=== PATIENT | male | born 1935 | race Caucasian/White ===

== ENCOUNTER 2021-02-15 12:10 | Day surgery (SDC) | payer MEDICARE ==
[2021-02-15] MEDS ORDERED: Depo-Medrol 40 MG/ML IM ONE (12:11)
[2021-02-15] MEDS ORDERED: Sodium Chloride 0.9(Preservative Free) 10 ML IJ ONE (12:11)
[2021-02-15] MEDS ORDERED: DIPRIVAN 200 MG/20 ML IV ONE (13:47)
[2021-02-15] MEDS ORDERED: Lactated Ringers 1,000 ML IV ONE (16:29)
--- NOTE | 2021-02-16 11:34 | XRAY ---
37 seconds fluoroscopy time in surgery for right L4-S1 transforaminal MILLICENT
== END 2021-02-15 14:15 | disposition home or self-care (01) ==
LOC: SDC-PAIN 12:10
PROVIDERS: ATTEND Psychiatry & Neurology Pain Medicine
DX: M54.16 Radiculopathy, lumbar region (principal); I10 Essential (primary) hypertension; E78.5 Hyperlipidemia, unspecified; Z79.899 Other long term (current) drug therapy
CPT/HCPCS: 64483; 64484; 72100; 77003; J1030; J2704; Q9966

== ENCOUNTER 2021-03-08 13:48 | Day surgery (SDC) | payer MEDICARE ==
[2021-03-08] MEDS ORDERED: Depo-Medrol 40 MG/ML IM ONE (13:49)
[2021-03-08] MEDS ORDERED: Sodium Chloride 0.9(Preservative Free) 10 ML IJ ONE (13:49)
[2021-03-08] MEDS ORDERED: DIPRIVAN 200 MG/20 ML IV ONE (16:06)
[2021-03-08] MEDS ORDERED: Lactated Ringers 1,000 ML IV ONE (17:33)
--- NOTE | 2021-03-09 08:11 | XRAY ---
30 seconds fluoroscopy time in surgery for right L4-S1 transforaminal MILLICENT.
== END 2021-03-08 16:27 | disposition home or self-care (01) ==
LOC: SDC-PAIN 13:48
PROVIDERS: ATTEND Psychiatry & Neurology Pain Medicine
DX: M54.16 Radiculopathy, lumbar region (principal); I10 Essential (primary) hypertension; E78.5 Hyperlipidemia, unspecified; Z79.899 Other long term (current) drug therapy
CPT/HCPCS: 64483; 64484; 72100; 77003; J1030; J2704; Q9966

== ENCOUNTER 2021-07-26 14:22 | Day surgery (SDC) | payer MEDICARE ==
[2021-07-26] MEDS ORDERED: Xylocaine 1% Vial 30 ML PF IJ ONE (14:23)
[2021-07-26] MEDS ORDERED: Depo-Medrol 40 MG/ML IM ONE (14:23)
[2021-07-26] MEDS ORDERED: BUPIVACAINE 0.5% VIAL IJ ONE (14:23)
--- NOTE | 2021-07-26 22:01 | XRAY ---
Indication: Left SI joint injection. Intraoperative fluoroscopy provided for 25 seconds. Single lateral digital spot image submitted for interpretation demonstrates posterior needle tip projecting mid sacrum. Correlate with intraoperative findings/report.
--- NOTE | 2021-07-27 09:03 | XRAY ---
25 seconds fluoroscopy time in surgery for injection of the left SI joint.
== END 2021-07-26 16:03 | disposition home or self-care (01) ==
LOC: SDC-PAIN 14:22
PROVIDERS: ATTEND Psychiatry & Neurology Pain Medicine
DX: M46.1 Sacroiliitis, not elsewhere classified (principal); I10 Essential (primary) hypertension; E78.5 Hyperlipidemia, unspecified; Z79.899 Other long term (current) drug therapy
CPT/HCPCS: 27096; 72020; 77002; G0260; J1030; J2001

== ENCOUNTER 2022-02-05 08:56 | Emergency (ER) | payer MEDICARE ==
--- NOTE | 2022-02-05 09:02 | ERPHSYRPT ---
- History of Present Illness Time Seen by Provider: 02/05/22 09:01 Source: patient, family Exam Limitations: no limitations Physician History: This is an 86-year-old white male patient of Dr. Adler who has a history of hyperlipidemia, prostate issues, hypertension and chronic back pain. He does see a pain specialist on occasion for the chronic back pain issues. Approximately 3 days ago he began having some shooting pains from his lumbar area down the buttock on both sides. It is worse on the right than the left. He does not have urinary incontinence. He has control of his bowels. He does not have loss of sensation in his lower legs or feet. Patient just uses [id number] naproxen for his pain control. He states that he has a Flexeril 5 mg prescription that he does not use because he states that this does not help his pain. He did not suffer any acute traumatic fall or injury. Timing/Duration: day(s) (3) Method of Injury: other (No injury) Quality: burning, radiating, sharp, stabbing Back Pain Location: lumbar spine, paraspinous muscles Back Pain Radiation: buttocks Severity of Pain-Max: moderate Severity of Pain-Current: moderate Associated Symptoms: denies symptoms, lower back pain (Lumbar level), muscle spasms (Lumbar level), No urinary incontinence, No loss of bowel control, No problems urinating, No numbness in legs/feet, No sensory/motor loss, No tingling in legs/feet Allergies/Adverse Reactions: No Known Drug Allergies Allergy (Verified 02/05/22 09:24) Home Medications: Finasteride 5 mg [Proscar 5 MG] 1 tablet PO DAILY 05/03/15 [History] Lisinopril 10 mg [Zestril 10 MG] 5 mg PO DAILY 05/03/15 [History] Pravastatin Sodium [Pravachol] 1 tablet PO DAILY 05/03/15 [History] Tamsulosin HCl 0.4 mg [Flomax 0.4 MG] 1 tablet PO DAILY 05/03/15 [History] Carvedilol 3.125 mg [Coreg 3.125 MG] 3.125 mg PO BID 02/05/22 [History] Cyclobenzaprine HCl 10 mg PO QID PRN 02/05/22 [History] Multivitamin [Multivitamins] 1 each PO DAILY 02/05/22 [History] Naproxen 500 mg [Naprosyn 500 MG] 500 mg PO UD PRN 02/05/22 [History] Travel Risk - International Travel Have you traveled outside of the country in past 3 weeks: No - Coronavirus Screening Are you exhibiting any of the following symptoms?: No Close contact with a COVID-19 positive Pt in past 14-21 Days: No - Review of Systems Constitutional: No Symptoms Eyes: No Symptoms Ears, Nose, & Throat: No Symptoms Respiratory: No Symptoms Cardiac: No Symptoms Abdominal/Gastrointestinal: No Symptoms Genitourinary Symptoms: No Symptoms Musculoskeletal: Back Pain Skin: No Symptoms Neurological: No Symptoms Psychological: No Symptoms Endocrine: No Symptoms Hematologic/Lymphatic: No Symptoms Immunological/Allergic: No Symptoms All Other Systems: Reviewed and Negative - Past Medical History Pertinent Past Medical History: No - Past Surgical History Past Surgical History: No - Nursing Vital Signs Nursing Vital Signs: Initial Vital Signs Temperature 97.6 F 02/05/22 09:06 Pulse Rate 85 02/05/22 09:06 Blood Pressure 166/137 02/05/22 09:06 O2 Sat by Pulse Oximetry 95 02/05/22 09:06 Pain Scale Pain Intensity [Lower Distal 8 Back] Pain Intensity 8 - Physical Exam General Appearance: no apparent distress, alert, anxiety Eye Exam: PERRL/EOMI, eyes nml inspection Ears, Nose, Throat Exam: normal ENT inspection, moist mucous membranes Neck Exam: normal inspection, non-tender, supple, full range of motion Respiratory Exam: airway intact, No chest tenderness, No respiratory distress Gastrointestinal Exam: No tenderness Rectal Exam: not done Back Exam: normal inspection, decreased range of motion, muscle spasm, No CVA tenderness, No vertebral tenderness Extremity Exam: normal inspection, normal range of motion, pelvis stable Neurologic Exam: alert, oriented x 3, cooperative, 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 II-XII nml as tested, normal mood/affect, nml cerebellar function, nml station & gait, sensation nml Skin Exam: normal color, warm, dry Lymphatic Exam: No adenopathy SpO2 Interpretation: normal O2 Delivery: Room Air - Course Nursing assessment & vital signs reviewed: Yes Ordered Tests: Active Orders 24 hr Category Date Time Status LUMBAR LIMITED (2 OR 3 VIEWS) Stat Exams 02/05/22 09:32 Completed Medication Summary Discontinued Medications Generic Name Dose Route Start Last Admin Trade Name Emmettq PRN Reason Stop Dose Admin Methylprednisolone Sodium 0 mg 02/05/22 09:33 02/05/22 09:50 Succinate 125 mg/ Sterile IM 02/05/22 09:34 125 mg Water 2 ml STAT ONE Administration Methylprednisolone Sodium Succinate Confirm 02/05/22 09:39 Methylprednis Sod Succ 125 Mg/2 Ml Vial Administered 02/05/22 09:40 Dose 125 mg .ROUTE .STK-MED ONE Orphenadrine Citrate 60 mg 02/05/22 09:33 02/05/22 09:50 Orphenadrine Citrate 60 Mg/2 Ml Vial IM 02/05/22 09:34 60 mg STAT ONE Administration Orphenadrine Citrate Confirm 02/05/22 09:39 Orphenadrine Citrate 60 Mg/2 Ml Vial Administered 02/05/22 09:40 Dose 60 mg .ROUTE .STK-MED ONE Oxycodone/Acetaminophen 1 tab 02/05/22 09:33 02/05/22 09:50 Oxycodone Hcl/Apap 5 Mg/325 Mg Tablet PO 02/05/22 09:34 1 tab STAT STA Administration Oxycodone/Acetaminophen Confirm 02/05/22 09:38 Oxycodone Hcl/Apap 5 Mg/325 Mg Tablet Administered 02/05/22 09:39 Dose 1 tab .ROUTE .STK-MED ONE - Progress Progress: improved, pain not gone completely Progress Note: 02/05/22 10:04 Lumbar spine x-ray shows multilevel degenerative changes. There is no acute fracture or subluxation present. Counseled pt/family regarding: diagnosis, need for follow-up, rad results - Departure Departure Disposition: Home Clinical Impression: Acute exacerbation of chronic low back pain Condition: Stable Critical Care Time: No Referrals: BAL ADLER DO [Primary Care Provider] - Follow up/PCP as directed Additional Instructions: Take your medications as prescribed. Do not take your Flexeril and use the new muscle relaxant prescribed to you. Follow-up with your pain specialist and primary care physician for further evaluation and management. Prescriptions: Oxycodone HCl/Acetaminophen [Percocet 5-325 mg Tablet] 1 each PO Q8H PRN PRN #6 tablet MDD 3 PRN Reason: Moderate To Severe Pain Prednisone 10 mg [Deltasone 10 mg] 10 mg PO TID #12 tablet Orphenadrine Citrate 100 mg [Norflex 100 MG Tablet] 100 mg PO BID #10 tab
[2022-02-05 09:24] VITALS: O2SAT 95
[2022-02-05] MEDS ORDERED: solu-MEDROL 125 MG, Sterile H2O 10 ml 2 ML IM ONE ×2 (09:33)
[2022-02-05] MEDS ORDERED: PERCOCET TABLET 5/325MG PO STA (09:33)
[2022-02-05] MEDS ORDERED: Norflex 60 MG/2 ML IM ONE (09:33)
[2022-02-05] MEDS ORDERED: PERCOCET TABLET 5/325MG ONE (09:38)
[2022-02-05] MEDS ORDERED: Norflex 60 MG/2 ML ONE (09:39)
[2022-02-05] MEDS ORDERED: solu-MEDROL ONE (09:39)
--- NOTE | 2022-02-05 10:02 | XRAY ---
Indication: Low back pain radiating right hip. No known injury. Comparison: December 24, 2020. 3 view lumbar spine unchanged again demonstrating osteopenia, mild scoliosis, mild/moderate multilevel thoracolumbar degenerative spondylosis again greatest L5-S1, and scattered vascular calcifications. No new/acute abnormalities.
[2022-02-05 10:22] VITALS: BP 163/91; PULSE 92
== END 2022-02-05 10:20 | disposition home or self-care (01) ==
LOC: ED 08:56
DX: G89.29 Other chronic pain (principal); M54.50 Low back pain, unspecified; E78.5 Hyperlipidemia, unspecified; I10 Essential (primary) hypertension; Z79.899 Other long term (current) drug therapy; Z79.891 Long term (current) use of opiate analgesic; Z79.52 Long term (current) use of systemic steroids
CPT/HCPCS: 72100; 96372; 99284; J2360; J2930; A9270-GY

== ENCOUNTER 2022-07-01 06:57 | Emergency (ER) | payer MEDICARE, SELFPAY ==
[2022-07-01 07:11] VITALS: O2SAT 98
--- NOTE | 2022-07-01 07:33 | ERPHSYRPT ---
- History of Present Illness Time Seen by Provider: 07/01/22 07:29 Source: patient, family Exam Limitations: no limitations Patient Subjective Stated Complaint: Pt states "On I fell and hurt my right ribs." Triage Nursing Assessment: Pt presented alert and oriented X 3, skin pwd. Pt ambulates with an upright steady gait, able to speak in clear full sentences pt holding his right side. Physician History: Pt states "On I fell and hurt my right ribs." c/o right lower rib cage pain. Pain with breathing. No shortness of breath, fever or chills Timing/Duration: week(s) (one week ago) Severity: moderate Modifying Factors: Improves With: medication, acetaminophen Associated Symptoms: denies symptoms Allergies/Adverse Reactions: No Known Drug Allergies Allergy (Verified 02/05/22 09:24) Home Medications: Finasteride 5 mg [Proscar 5 MG] 1 tablet PO DAILY 05/03/15 [History] Lisinopril 10 mg [Zestril 10 MG] 5 mg PO DAILY 05/03/15 [History] Pravastatin Sodium [Pravachol] 1 tablet PO DAILY 05/03/15 [History] Tamsulosin HCl 0.4 mg [Flomax 0.4 MG] 1 tablet PO DAILY 05/03/15 [History] Carvedilol 3.125 mg [Coreg 3.125 MG] 3.125 mg PO BID 02/05/22 [History] Cyclobenzaprine HCl 10 mg PO QID PRN 02/05/22 [History] Multivitamin [Multivitamins] 1 each PO DAILY 02/05/22 [History] Naproxen 500 mg [Naprosyn 500 MG] 500 mg PO UD PRN 02/05/22 [History] Hx Tetanus, Diphtheria Vaccination/Date Given: Yes Hx Influenza Vaccination/Date Given: Yes Hx Pneumococcal Vaccination/Date Given: Yes Immunizations Up to Date: Yes Travel Risk - International Travel Have you traveled outside of the country in past 3 weeks: No - Coronavirus Screening Are you exhibiting any of the following symptoms?: No Close contact with a COVID-19 positive Pt in past 14-21 Days: No - Vaccine Status Have you recieved a Covid-19 vaccination: Yes Formula Technician: Moderna - Vaccination Dates Date of 2cond Vaccination (if applicable): 11/2020 - Review of Systems Constitutional: No Fever, No Chills Eyes: No Symptoms Ears, Nose, & Throat: No Symptoms Respiratory: Other (right lower chest pain), No Cough, No Dyspnea Cardiac: Other, No Chest Pain, No Edema, No Syncope Abdominal/Gastrointestinal: No Abdominal Pain, No Nausea, No Vomiting, No Diarrhea Genitourinary Symptoms: No Dysuria Musculoskeletal: No Back Pain, No Neck Pain Skin: No Rash Neurological: No Dizziness, No Focal Weakness, No Sensory Changes Psychological: No Symptoms Endocrine: No Symptoms All Other Systems: Reviewed and Negative - Past Medical History Pertinent Past Medical History: Yes ENT History: Macular Degeneration Cardiac History: High Cholesterol, Hypertension, Other Musculoskeletal History: Arthritis - Past Surgical History Past Surgical History: Yes - Social History Smoking Status: Former smoker Exposure to second hand smoke: No Drug Use: none Patient Lives Alone: No - Nursing Vital Signs Nursing Vital Signs: Initial Vital Signs Temperature 97.6 F 07/01/22 07:06 Pulse Rate 75 07/01/22 07:06 Respiratory Rate 20 07/01/22 07:06 Blood Pressure 177/76 07/01/22 07:06 O2 Sat by Pulse Oximetry 98 07/01/22 07:06 Pain Scale Pain Intensity 10 - Physical Exam General Appearance: no apparent distress, alert Eye Exam: PERRL/EOMI, eyes nml inspection Ears, Nose, Throat Exam: normal ENT inspection, TMs normal, pharynx normal, moist mucous membranes Neck Exam: normal inspection, non-tender, supple, full range of motion Respiratory Exam: normal breath sounds, lungs clear, diminished breath sounds (right lower lobe), No respiratory distress Cardiovascular Exam: regular rate/rhythm, normal heart sounds, normal peripheral pulses Gastrointestinal/Abdomen Exam: soft, normal bowel sounds, No tenderness, No mass Back Exam: normal inspection, normal range of motion, No CVA tenderness, No vertebral tenderness Extremity Exam: normal inspection, normal range of motion, pelvis stable Neurologic Exam: alert, oriented x 3, cooperative, normal mood/affect, nml cerebellar function, nml station & gait, sensation nml, No motor deficits Skin Exam: normal color, warm, dry, No rash Lymphatic Exam: No adenopathy SpO2: 98 - Course Nursing assessment & vital signs reviewed: Yes Rhythm Strip: Normal Sinus Rhythm - Radiology Exams Chest X-ray Interpretation: Reviewed by me (chronic COPD ), Negative Ribs X-ray Interpretation: Reviewed by me, No Fracture Ordered Tests: Active Orders 24 hr Category Date Time Status CHEST 2 VIEWS (PA AND LAT) Stat Exams 07/01/22 07:11 Taken RIBS UNILATERAL Stat Exams 07/01/22 07:12 Taken - Progress Progress: improved, pain not gone completely Counseled pt/family regarding: diagnosis, need for follow-up, rad results - Departure Departure Disposition: Home Clinical Impression: Rib pain on right side Rib contusion Qualifiers: Encounter type: initial encounter Laterality: right Qualified Code(s): S20.211A - Contusion of right front wall of thorax, initial encounter Condition: Stable Critical Care Time: No Referrals: BAL ARIZMENDI, [Primary Care Provider] - Follow up/PCP as directed Instructions: Bruised Rib Additional Instructions: Discharge/Care Plan YOSI ROBLES was seen on 07/01/22 in the Emergency Room. The patient was counseled regarding Diagnosis,Lab results, Imaging studies, need for follow up and when to return to the Emergency Room. Prescriptions given: Discharge Note I have spoken with the patient and/or caregivers. I have explained the patient's condition, diagnosis and treatment plan based on the information available to me at this time. I have answered the patient's and/or caregiver's questions and addressed any concerns. The patient and/or caregivers have as good understanding of the patient's diagnosis, condition and treatment plan as can be expected at this point. The vital signs have been stable. The patient's condition is stable and appropriate for discharge from the emergency department. The patient will pursue further outpatient evaluation with the primary care physician or other designated or consulting physician as outlined in the discharge instructions. The patient and/or caregivers are agreeable to this plan of care and follow-up instructions have been explained in detail. The patient and/or caregivers have received these instruction. The patient/and or caregivers are aware that any significant change in condition or worsening of symptoms should prompt an immediate return to this or the closest emergency department or call 911. YOSI ROBLES was seen on 07/01/22 n the Emergency Room. At that time you were treated for an emergent condition, during your visit Laboratory, Radiology and/or other procedures may have been ordered. It is very important that you follow-up with your Primary Care Physician BAL ARIZMENDI DO within the next 24-48 hours to review your Emergency Room visit and the final results of testing that was ordered. Some test results such as Urine Cultures, Blood Cultures, and other cultures if ordered will not be finalized for 24-48 hours. If you do not have a Primary Care Provider please call the medical records department at [phone] ext [phone] to obtain a copy of your results or you may sign into our patient portal to obtain these results by visiting us @ [email or web address] and completing the following steps: 1. Click on the Patient Portal link 2. Click the Patient Self Enrollment Link to complete the enrollment form and entering your 3. Once the enrollment form is completed you will receive an email with a temporary ID and password at the email address you provided. 4. Next choose a user name and password. Your user name must be at least 4 characters long and your password must be at least 4 characters long. 5. Choose a security question from the list and provide your answer to the question. If you already have signed into the Health Portal you may access your Health Care Information 18/03 by the following steps: 1. Login to our website @ [email or web address] 2. Enter your original user name and password. FAQS The [facility] Health Portal is an online tool that contains your Lab Results, Radiology Reports, Visit History, Discharge Instructions and Health Summary Lab and Radiology Results will not be available for 72 hours on the portal. The Portal is a secure site, passwords are encryted and URLs are re-written so they cannot be copied and pasted. You and authorized family members are the only ones who can access your Portal. Also there is a timeout feature that protects your information if you leave the Portal page open. If you have technical difficulty please use the Contact Us link on the page this will allow you to submit any questions you have regarding the Portal or you may contact the Medical Record Department at [phone]. Prescriptions: Lidocaine HCl 5% Patch [Lidoderm Patch 5%] 1 patch TOP BID #20 patch
[2022-07-01] MEDS ORDERED: Lidoderm Patch 5% TOP ONE (07:59)
[2022-07-01 08:13] VITALS: BP 152/112; PULSE 66
--- NOTE | 2022-07-01 09:21 | XRAY ---
Indication: Right chest pain following fall June 22, 2022. Comparison: July 18, 2020 PA/lateral chest unchanged again hyperinflated with scattered bilateral calcified pleural plaquing. Heart not enlarged again with tortuous descending aorta. Bony thorax intact again with mild osteopenia and degenerative changes. Impression: Continued nonacute chest with chronic features.
--- NOTE | 2022-07-01 09:21 | XRAY ---
Indication: Pain following fall June 16, 2022 Comparison: None 2 view right ribs demonstrates osteopenia, bilateral lung calcified pleural plaquing, tortuous descending aorta, mild osteopenia, and degenerative changes. No other bony, articular, or soft tissue abnormalities.
== END 2022-07-01 09:00 | disposition home or self-care (01) ==
LOC: ED 06:57
DX: S20.211A Contusion of right front wall of thorax, initial encounter (principal); W19.XXXA Unspecified fall, initial encounter; R07.81 Pleurodynia; E78.5 Hyperlipidemia, unspecified; I10 Essential (primary) hypertension; Z79.899 Other long term (current) drug therapy
CPT/HCPCS: 71046; 71100; 99283; A9270-GY